=== PATIENT | male | born 1975 | race Two or more races ===

== ENCOUNTER 2025-02-04 10:02 | Emergency (ER) | payer OTHER ==
[~2025-02-04] VITALS: Ht 185.4 cm; Wt 99.8 kg
[2025-02-04] MEDS ORDERED: OMEPRAZOLE20 MG (10:40)
[2025-02-04] MEDS ORDERED: MOUNJARO5 MG/0.5 M SQ (10:41)
[2025-02-04] MEDS ORDERED: SYNJARDY 12.5-1 EACH (10:41)
[2025-02-04] MEDS ORDERED: AMLODIPINE BESYL5 MG (10:41)
[2025-02-04] MEDS ORDERED: VALSARTAN-HCTZ1 EAC1 PO (10:41)
[2025-02-04] MEDS ORDERED: ROSUVASTATIN CA40 MG (10:42)
[2025-02-04] MEDS ORDERED: COLCHICINE0.6 MG (10:42)
[2025-02-04] MEDS ORDERED: GABAPENTIN100 M2 (10:42)
[2025-02-04] MEDS ORDERED: TIZANIDINE HCL4 MG (10:43)
[2025-02-04] MEDS ORDERED: AZITHROMYCIN 500 MG TABLET PO ONE ×2 (10:55→11:00)
[2025-02-04] MEDS ORDERED: GUAIFENESIN/DEXTROMETHORPHAN 100MG/10ML BLIST.PACK PO ONE ×2 (10:55→11:00)
[2025-02-04] MEDS ORDERED: ENALAPRILAT DIHYDRATE 1.25 MG/ML VIAL IV ONE ×2 (10:55→11:00)
[2025-02-04 11:30] LABS: BASO % 0.4 % (0.1-1.2); EOS # 0.18 (0.04-0.54); EOS % 2.3 % (0.7-7.0); HEMATOCRIT 42.3 % (40.1-51.0); HEMOGLOBIN 14.5 g/dL (13.7-17.5); LYMPH # 1.85 (1.18-3.74); LYMPH % 24.1 % (19.3-53.1); MEAN CORPUSCULAR HEMOGLOBIN 28.2 pg (25.6-32.2); MONO # 0.61 (0.24-0.82); NEUT # 4.92 (1.56-6.13); NEUT % 64.2 % (34.0-71.1); PLATELET COUNT 323 K/uL (163-369); RED BLOOD COUNT 5.14 M/uL (4.63-6.08); RED CELL DISTRIBUTION WIDTH 11.8 % (11.6-14.4)
[2025-02-04 12:16] LABS: COVID-19 AG NEGATIVE (NEGATIVE)
[2025-02-04 12:17] LABS: INFLUENZA A AG NEGATIVE (NEGATIVE); INFLUENZA B AG NEGATIVE (NEGATIVE)
[2025-02-04] MEDS ORDERED: ZYRTEC10 M3 PO (12:20)
[2025-02-04] MEDS ORDERED: TUSNEL LIQUID178 ML PO (12:20)
[2025-02-04] MEDS ORDERED: ZITHROMAX500 MG PO (12:20)
== END 2025-02-04 14:01 | disposition home or self-care (01) ==
LOC: ER 10:22
PROVIDERS: General Practice
DX: J06.9 Acute upper respiratory infection, unspecified (principal); Z20.822 Contact with and (suspected) exposure to COVID-19; I10 Essential (primary) hypertension; E11.9 Type 2 diabetes mellitus without complications; Z79.84 Long term (current) use of oral hypoglycemic drugs